=== PATIENT | male | born 1955 | race Hispanic/Latino ===

== ENCOUNTER 2018-08-02 10:45 | Emergency (ER) | payer OTHER ==
--- NOTE | 2018-08-02 11:31 | Emergency Department Report ---
- General Chief Complaint: Upper Respiratory Infection Stated Complaint: UPPER RESPIRATORY ISSUES Time Seen by Provider: 08/02/18 11:04 Source: patient Mode of arrival: Ambulatory Limitations: No Limitations - History of Present Illness Initial Comments: 62-year-old male witha past medical history presents the hospital complaints of cough and cold symptoms times yesterday. He has sneezing and having a cough productive for green sputum. No documented fever but patient did feel hot yesterday. He did not receive a flu shot. No known sick contacts or recent travel. She does not have a primary care doctor. He does smoke cigarettes and denies wheezing or shortness of breath. Generalized body aches reported - Related Data Previous Rx's Medication Instructions Recorded Last Taken Type Azithromycin [Zithromax Z-SEGUNDO] 1 dose PO DAILY 5 Days tab 08/02/18 Unknown Rx Guaifenesin/Pseudoephedrne HCl 1 each PO BID PRN #20 tab.er.12h 08/02/18 Unknown Rx [Mucinex D ER 600-60 mg Tablet] Ibuprofen [Motrin] 600 mg PO Q8H PRN #30 tablet 08/02/18 Unknown Rx Allergies Allergy/AdvReac Type Severity Reaction Status Date / Time No Known Allergies Allergy Unverified 08/02/18 05:49 ED Review of Systems ROS: Stated complaint: UPPER RESPIRATORY ISSUES Other details as noted in HPI Comment: All other systems reviewed and negative ED Past Medical Hx - Past Medical History Previous Medical History?: No - Surgical History Past Surgical History?: No - Social History Smoking Status: Current Every Day Smoker Substance Use Type: Non Opiate Pain - Medications Home Medications: Home Medications Medication Instructions Recorded Confirmed Last Taken Type Azithromycin [Zithromax Z-SEGUNDO] 1 dose PO DAILY 5 Days tab 08/02/18 Unknown Rx Guaifenesin/Pseudoephedrne HCl 1 each PO BID PRN #20 tab.er.12h 08/02/18 Unknown Rx [Mucinex D ER 600-60 mg Tablet] Ibuprofen [Motrin] 600 mg PO Q8H PRN #30 tablet 08/02/18 Unknown Rx ED Physical Exam - General Limitations: No Limitations - Other Other exam information: General: No limitations, patient is alert in no acute distress Head exam: Atraumatic, normocephalic Eyes exam: Normal appearance ENT: Moist mucous membrane, normal oropharynx without exudate Neck exam: Normal inspection, full range of motion, no meningismus nontender Respiratory exam: Clear to auscultation bilateral, no wheezes, rales, crackles Cardiovascular: Normal rate and rhythm, normal heart sounds Abdomen: Soft, nondistended, and nontender, with normal bowel sounds, no rebound, or guarding Extremity: Full range of motion normal inspection no deformity Back: Normal Inspection, full range of motion, no tenderness Neurologic: Alert, oriented x3, cranial nerves intact, no motor or sensory deficit Psychiatric: normal affect, normal mood Skin: Warm, dry, intact ED Course Vital Signs 08/02/18 10:53 Temperature 97.9 F Pulse Rate 84 Respiratory 18 Rate Blood Pressure 160/70 O2 Sat by Pulse 100 Oximetry ED Medical Decision Making - Medical Decision Making Patient will be treated for URI/bronchitis with Z-Segundo as symptomatic treatment. Patient works at patient works at a [employer] and worked excuse will be pro vided. Blood pressure noted to be elevated and outpatient follow-up encouraged for blood pressure recheck and management. Patient denies history of previous hypertension - Differential Diagnosis viral syndrome, influenza, bronchitis Critical Care Time: No Critical care attestation.: If time is entered above; I have spent that time in minutes in the direct care of this critically ill patient, excluding procedure time. ED Disposition Clinical Impression: Acute bronchitis, URI (upper respiratory infection), Elevated blood pressure reading Disposition: TO HOME OR SELFCARE Is pt being admited?: No Does the pt Need Aspirin: No Condition: Stable Instructions: Acute Bronchitis (ED), Upper Respiratory Infection (ED) Additional Instructions: Take the medication as prescribed. Follow up with your doctor or the clinic/doctor provided. Return if symptoms worsen as indicated by your discharge instructions Prescriptions: Azithromycin [Zithromax Z-SEGUNDO] 1 dose PO DAILY 5 Days tab Guaifenesin/Pseudoephedrne HCl [Mucinex D ER 600-60 mg Tablet] 1 each PO BID PRN #20 tab.er.12h PRN Reason: Cough Ibuprofen [Motrin] 600 mg PO Q8H PRN #30 tablet PRN Reason: Pain Referrals: [facility] [Other] - 3-5 Days MAT CHAU MD [Staff Physician] - 3-5 Days Forms: Work/School Release Form(ED) Time of Disposition: 11:31
== END 2018-08-02 11:40 | disposition home or self-care (01) ==
LOC: ED 10:45
CPT/HCPCS: 99282

== ENCOUNTER 2019-04-03 08:14 | Emergency (ER) | payer SELFPAY ==
[2019-04-03] MEDS ORDERED: IBUPROFEN PO ONE (08:42)
--- NOTE | 2019-04-03 08:46 | Emergency Department Report ---
ED Lower Extremity HPI - General Chief Complaint: Fall Stated Complaint: FALL/LEG AND HIP PAIN Time Seen by Provider: 04/03/19 08:40 Source: patient Mode of arrival: Ambulatory Limitations: No Limitations - History of Present Illness Initial Comments: 63-year-old male presents to the emergency room complaining of right hip in ankle pain 1 week. Patient state that he had a slip and fall 2 weeks ago while at work going up stairs carrying an object. Patient states he has had no relief of pain with using BenGay, icy hot, heating pads, ice packs and [id number] Tylenol. Patient reports that the pain in his right hip will radiate distally to the thigh and then down to the calf. Patient denies any past medical history currently takes no medications on a daily basis and has no known drug allergies. MD Complaint: hip injury Onset/Timin -: week(s) Injury: Hip: Right, Ankle: Right Type of Injury: other (fall) Place: work Severity: moderate Severity scale (0 -10): 6 Improves With: nothing Worsens With: weight bearing, palpation Context: fall Treatments Prior to Arrival: cold therapy - Related Data Previous Rx's Medication Instructions Recorded Last Taken Type Azithromycin [Zithromax Z-SEGUNDO] 1 dose PO DAILY 5 Days tab 08/02/18 Unknown Rx Guaifenesin/Pseudoephedrne HCl 1 each PO BID PRN #20 tab.er.12h 08/02/18 Unknown Rx [Mucinex D ER 600-60 mg Tablet] Ibuprofen [Motrin 600 MG tab] 600 mg PO Q8H PRN #30 tablet 04/03/19 Unknown Rx Allergies Allergy/AdvReac Type Severity Reaction Status Date / Time No Known Allergies Allergy Verified 04/03/19 08:21 ED Review of Systems ROS: Stated complaint: FALL/LEG AND HIP PAIN Other details as noted in HPI Comment: All other systems reviewed and negative ED Past Medical Hx - Social History Smoking Status: Current Every Day Smoker Substance Use Type: Alcohol - Medications Home Medications: Home Medications Medication Instructions Recorded Confirmed Last Taken Type Azithromycin [Zithromax Z-SEGUNDO] 1 dose PO DAILY 5 Days tab 08/02/18 Unknown Rx Guaifenesin/Pseudoephedrne HCl 1 each PO BID PRN #20 tab.er.12h 08/02/18 Unknown Rx [Mucinex D ER 600-60 mg Tablet] Ibuprofen [Motrin 600 MG tab] 600 mg PO Q8H PRN #30 tablet 04/03/19 Unknown Rx ED Physical Exam - General Limitations: No Limitations General appearance: alert, in no apparent distress - Head Head exam: Present: atraumatic, normocephalic - Eye Eye exam: Present: normal appearance, PERRL - ENT ENT exam: Present: mucous membranes moist - Neck Neck exam: Present: normal inspection, full ROM - Expanded Lower Extremity Exam Right Hip exam: Present: full ROM, tenderness. Absent: swelling, deformity Upper Leg exam: Present: full ROM, tenderness. Absent: swelling Knee exam: Present: normal inspection, full ROM. Absent: tenderness Lower Leg exam: Present: normal inspection, full ROM. Absent: tenderness Ankle exam: Present: full ROM. Absent: swelling, dislocation Foot/Toe exam: Present: normal inspection, full ROM. Absent: tenderness, swelling Neuro vascular tendon exam: Present: no vascular compromise - Back Exam Back exam: Present: normal inspection, full ROM - Neurological Exam Neurological exam: Present: alert, oriented X3, normal gait - Psychiatric Psychiatric exam: Present: normal affect, normal mood - Skin Skin exam: Present: warm, dry, intact, normal color. Absent: rash ED Course Vital Signs 04/03/19 08:20 Temperature 97.8 F Pulse Rate 85 Respiratory 16 Rate Blood Pressure 133/73 O2 Sat by Pulse 99 Oximetry ED Lower Extremity MDM - Radiology Data Radiology results: report reviewed Patient: MAGALI LEES MR#: [id number] : 1955 Acct:[id number] Age/Sex: 63 / M ADM Date: 04/03/19 Loc: ED Attending Dr: Ordering Physician: SAM GILLIS Date of Service: 04/03/19 Procedure(s): XR hip 2-3V RT Accession Number(s): [id number] cc: SAM GILLIS Fluoro Time In Minutes: RIGHT HIP, 2 VIEWS INDICATION: fall hip pain. COMPARISON: None. IMPRESSION: Mild osteopenia is suspected. No acute osseous findings or joint pathology. The soft tissues are unremarkable. Signer Name: Dieter Roy Jr, MD Signed: 04/03/2019 9:10 AM Workstation Name: [id number] Transcribed By: TTR Dictated By: DIETER ROY JR, MD Electronically Authenticated By: DIETER ROY JR, MD Signed Date/Time: 04/03/19909 DD/ 8 TD/TT: - Medical Decision Making 63-year-old male presents to the emergency room complaining of right hip in ankle pain 1 week. Patient state that he had a slip and fall 2 weeks ago while at work going up stairs carrying an object. Patient states he has had no relief of pain with using BenGay, icy hot, heating pads, ice packs and [id number] Tylenol. Patient reports that the pain in his right hip will radiate distally to the thigh and then down to the calf. Patient denies any past medical history currently takes no medications on a daily basis and has no known drug allergies. X-ray has been ordered of right hip and ibuprofen 600 mg for pain management. Critical care attestation.: If time is entered above; I have spent that time in minutes in the direct care of this critically ill patient, excluding procedure time. ED Disposition Clinical Impression: Hip pain, right, Sciatic radiculitis Disposition: DC-01 TO HOME OR SELFCARE Is pt being admited?: No Does the pt Need Aspirin: No Condition: Stable Instructions: Lumbar Radiculopathy (ED) Additional Instructions: X-rays were negative for any acute findings. Please take ibuprofen as needed for pain management. Follow up with orthopedic provider symptoms persist or gets worse. Prescriptions: Ibuprofen [Motrin 600 MG tab] 600 mg PO Q8H PRN #30 tablet PRN Reason: Pain Forms: Work/School Release Form(ED)
--- NOTE | 2019-04-03 09:14 | XRay Report ---
RIGHT HIP, 2 VIEWS INDICATION: fall hip pain. COMPARISON: None. IMPRESSION: Mild osteopenia is suspected. No acute osseous findings or joint pathology. The soft ti ssues are unremarkable. Signer Name: Dieter Roy Jr, MD Signed: 04/03/2019 9:10 AM Workstation Name: [id number]
[2019-04-03 10:03] VITALS: BP 130/70
== END 2019-04-03 10:02 | disposition home or self-care (01) ==
LOC: ED 08:14
DX: M54.16 Radiculopathy, lumbar region (principal); M25.551 Pain in right hip; F17.200 Nicotine dependence, unspecified, uncomplicated

== ENCOUNTER 2021-12-07 21:01 | Emergency (ER) | payer SELFPAY ==
[2021-12-07 21:28] LABS: Basophils % (Auto) 0.8 % (0.0-1.8); Eosinophils % (Auto) 0.7 % (0.0-4.3); Hematocrit 44.9 % (35.5-45.6); Hemoglobin 15.8 gm/dl (11.8-15.2); Lymphocytes # (Auto) 2.7 K/mm3 (1.2-5.4); Mean Corpuscular HGB Conc 35 % (32-34); Mean Corpuscular Volume 94 fl (84-94); Monocytes # (Auto) 0.5 K/mm3 (0.0-0.8); Platelet Count 275 K/mm3 (140-440); Red Blood Count 4.75 M/mm3 (3.65-5.03); Red Cell Distribution Width 14.5 % (13.2-15.2)
--- NOTE | 2021-12-07 21:39 | XRay Report ---
CHEST 2 VIEWS INDICATION / CLINICAL INFORMATION: CHEST PAIN. COMPARISON: None available. FINDINGS: SUPPORT DEVICES: None. HEART / MEDIASTINUM: No significant abnormality. LUNGS / PLEURA: No significant pulmonary abnormality. No significant pleural effusion. No pneumothora x. ADDITIONAL FINDINGS: No significant additional findings. IMPRESSION: 1. No acute abnormality of the chest. Signer Name: Kilo Price MD Signed: 12/07/2021 9:35 PM Workstation Name: [id number]
[2021-12-07 21:47] LABS: Alanine Aminotransferase 19 units/L (7-56); Albumin 4.4 g/dL (3.9-5); BUN/Creatinine Ratio 4; Blood Urea Nitrogen 4 mg/dL (9-20); Calcium 9.1 mg/dL (8.4-10.2); Hemolysis Index 7
[2021-12-08 05:07] VITALS: BP 154/77
--- NOTE | 2021-12-08 13:51 | Electrocardiograph Report ---
[facility] Test Date: 2021-12-07 Test Time: 21:10:54 Pat Name: MAGALI LEES Department: Room: Gender: M [employer] Attendant: TRAY : 1955 Requested By: SERENA BERRIOS Order Number: [id number] Reading MD: Jailyn Prince Measurements Intervals [place] Rate: 66 P: 82 IA: 147 QRS: 80 QRSD: 104 T: 88 QT: 415 QTc: 435 Interpretive Statements Sinus rhythm Early repolarization ST changes No previous ECG available for comparison Electronically Signed On 12-08-2021 13:50:55 EDT by Jailyn Prince
== END 2021-12-08 05:06 | disposition left against medical advice (07) ==
LOC: ED 21:01
DX: R07.9 Chest pain, unspecified (principal); Z53.21 Procedure and treatment not carried out due to patient leaving prior to being seen by health care provider
CPT/HCPCS: 36415; 71046; 80053; 84484; 85025; 93005